=== PATIENT | male | born 1970 | race Caucasian/White ===

== ENCOUNTER 2016-08-22 21:47 | Emergency (ER) | payer OTHER ==
[2016-08-22 23:18] VITALS: BP 140/84
== END 2016-08-22 23:18 | disposition home or self-care (01) ==
LOC: ED 21:47
DX: H00.011 Hordeolum externum right upper eyelid (principal)

== ENCOUNTER 2017-05-16 02:30 | Emergency (ER) | payer OTHER ==
[~2017-05-16] VITALS: Ht 182.9 cm; Wt 97.5 kg
[2017-05-16 02:56] VITALS: Ht 182.9 cm; Wt 97.5 kg
[2017-05-16 04:06] VITALS: BP 130/79
== END 2017-05-16 04:06 | disposition home or self-care (01) ==
LOC: ED 02:30
DX: J40 Bronchitis, not specified as acute or chronic (principal); J02.9 Acute pharyngitis, unspecified
CPT/HCPCS: J1885